=== PATIENT | female | born 1935 | race Caucasian/White ===

== ENCOUNTER 2018-01-20 14:28 | Inpatient (IN) ==
[2018-01-20] MEDS ORDERED: FUROSEMIDE 100 MG/10 ML VIAL IV STA (15:03)
[2018-01-20 15:50] LABS: Basophils % 0.5 % (0.0-0.8); Eosinophils # 0.1 10*3/uL (0.0-0.87); Eosinophils % 0.6 % (0.00-10.9); Hematocrit 45.1 VOL% (35.7-47.0); Hemoglobin 14.5 GM/DL (12.0-16.0); Immature Granulocytes % 0.2 %; Immature Granulocytes Absolute 0.02 #; Lymphocytes # 1.9 10*3/uL (1.4-4.0); Lymphocytes % 24.2 % (21.3-54.2); Mean Corpuscular HGB Conc 32.2 GM/DL (32-36); Mean Corpuscular Hemoglobin 30 PG (27-34); Mean Corpuscular Volume 91.9 FL (87-102); Mean Platelet Volume 11.6 FL (9.6-12.0); Monocytes # 1.1 10*3/uL (0.11-0.8); Monocytes % 13.8 % (1.7-12.7); Neutrophils # 4.9 10*3/uL (1.4-7.4); Neutrophils % 60.7 % (38.7-73.9); Platelet Count 188 T/CUMM (130-400); Red Blood Count 4.91 MC/CUMM (3.8-5.5); Red Cell Distribution Width 13.3 % (9.3-17.3)
[2018-01-20 16:11] LABS: INR 1.2; PT Patient Result 12.4 SECS; Partial Thromboplastin Time 27.1 SECS (0-40)
[2018-01-20 16:12] LABS: Albumin 3.2 G/DL (3.4-5.0); Bilirubin,Total 0.8 MG/DL (0.2-1.0); Calcium 8.6 MG/DL (8.5-10.1); Osmolality,Calculated 288.8 MOS/KG (273-304); Potassium 4.2 MMOL/L (3.5-5.1); Total Protein 5.7 G/DL (6.4-8.3)
[2018-01-20 16:23] LABS: Amorphous Crystals,Urine Occasional /HPF (Few); Apearance,Urine Slightly Hazy (Clear); Bilirubin,Urine Negative (Negative); Blood, Urine Small mg/dL (Negative); Glucose,Urine (UA) Negative (Negative); Hyaline Casts,Urine 2 /LPF (0-3); Ketones,Urine Negative (Negative); Mucus,Urine Occasional /LPF (Occasional); Nitrite,Urine Positive (Negative); Protein,Urine 30 MG/DL; RBC,Urine 12 /HPF (0-4); Squamous Epithelial Cell,Urine Occasional /HPF (0-10); Urine Color Amber (Yellow); Urine Specific Gravity 1.017 (1.001-1.035); WBC,Urine 45 /HPF (0-6)
[2018-01-20] MEDS ORDERED: ACETAMINOPHEN 325 MG TABLET PO PRN (17:26)
[2018-01-20] MEDS ORDERED: ONDANSETRON 4 MG/2 ML VIAL IV PRN (17:26)
[2018-01-20] MEDS ORDERED: NITROGLYCERIN SL 0.4 MG TABLET SL PRN (17:57)
[2018-01-20] MEDS ORDERED: POTASSIUM CHLORIDE 20 MEQ TABLET PO ONE (17:59)
[2018-01-20] MEDS: ENOXAPARIN 40 MG/0.4 ML SYRINGE SUBCUT SCH (21:27)
[2018-01-20] MEDS: CALCIUM (CARBONATE)/VITAMIN D 500 MG-200 UNIT TABLET PO SCH (21:28)
[2018-01-20] MEDS: PREGABALIN 100 MG CAPSULE PO SCH (21:28)
[2018-01-20] MEDS: MEMANTINE 10 MG TABLET PO SCH (21:28)
[2018-01-20] MEDS: DULoxetine 30 MG CAPSULE PO SCH (21:28)
[2018-01-20] MEDS: cefTRIAXone 1,000 MG in SYRINGE 1 EACH IV SCH (21:44)
[2018-01-21] MEDS ORDERED: FUROSEMIDE 20 MG/2 ML VIAL IV ONE ×2 (01:00→06:00)
[2018-01-21 05:16] LABS: Basophils % 0.4 % (0.0-0.8); Eosinophils # 0.1 10*3/uL (0.0-0.87); Eosinophils % 1.3 % (0.00-10.9); Hematocrit 42.8 VOL% (35.7-47.0); Hemoglobin 13.9 GM/DL (12.0-16.0); Immature Granulocytes % 0.9 %; Immature Granulocytes Absolute 0.07 #; Lymphocytes # 2.1 10*3/uL (1.4-4.0); Lymphocytes % 27.2 % (21.3-54.2); Mean Corpuscular HGB Conc 32.5 GM/DL (32-36); Mean Corpuscular Hemoglobin 30 PG (27-34); Mean Corpuscular Volume 91.3 FL (87-102); Mean Platelet Volume 12.2 FL (9.6-12.0); Monocytes # 1.2 10*3/uL (0.11-0.8); Monocytes % 15.7 % (1.7-12.7); Neutrophils # 4.3 10*3/uL (1.4-7.4); Neutrophils % 54.5 % (38.7-73.9); Platelet Count 162 T/CUMM (130-400); Red Blood Count 4.69 MC/CUMM (3.8-5.5); Red Cell Distribution Width 13.2 % (9.3-17.3); White Blood Count 7.8 T/CUMM (4-12)
[2018-01-21 05:55] LABS: Calcium 8.4 MG/DL (8.5-10.1); Osmolality,Calculated 291.6 MOS/KG (273-304); Potassium 3.5 MMOL/L (3.5-5.1); Risk Ratio 3.29; Thyroid Stimulating Hormone 3.13 uIU/ml (0.358-3.74)
[2018-01-21 05:58] LABS: Eosinophils 3 % (0-10); Lymphocytes 25 % (20-55); Segmented Neutrophils 59 % (50-85); Total Cells Counted 100
[2018-01-21 05:59] LABS: Hypochromasia 1+; Ovalocytes Slight; Platelet Estimate Adequate
[2018-01-21] MEDS ORDERED: POTASSIUM CHLORIDE 20 MEQ TABLET PO ONE (07:45)
[2018-01-21] MEDS ORDERED: MAGNESIUM SULF RIDER 4 GM in PREMIX 1 EACH IV PRN (07:46)
[2018-01-21] MEDS ORDERED: METOPROLOL TARTRATE 5 MG/5 ML VIAL IV ONE (07:48)
[2018-01-21] MEDS ORDERED: NON-FORMULARY MEDICATION (Cyanocobalamin (Vitamin B-12) [Vitamin B12] 2,500 MCG) PO SCH (09:00)
[2018-01-21] MEDS: LUBIPROSTONE 24 MCG CAPSULE PO SCH (10:30)
[2018-01-21] MEDS: PREGABALIN 100 MG CAPSULE PO SCH ×2 (10:30→21:27)
[2018-01-21] MEDS: MULTIVITAMIN (CENTRUM) TABLET PO SCH (10:30)
[2018-01-21] MEDS: CALCIUM (CARBONATE)/VITAMIN D 500 MG-200 UNIT TABLET PO SCH ×2 (10:31→21:26)
[2018-01-21] MEDS: METOPROLOL TARTRATE 25 MG TABLET PO SCH ×2 (10:31→21:27)
[2018-01-21] MEDS: MEMANTINE 10 MG TABLET PO SCH ×2 (10:31→21:27)
[2018-01-21] MEDS: ASPIRIN EC 81 MG TABLET PO SCH (10:31)
[2018-01-21] MEDS: MAGNESIUM SULF RIDER 2 GM in PREMIX 1 EACH IV PRN (10:32)
[2018-01-21] MEDS: FUROSEMIDE 20 MG/2 ML VIAL IV SCH ×2 (10:33→17:22)
[2018-01-21] MEDS ORDERED: FUROSEMIDE 20 MG/2 ML VIAL IV SCH (15:00)
[2018-01-21] MEDS: DULoxetine 30 MG CAPSULE PO SCH (21:26)
[2018-01-21] MEDS: ENOXAPARIN 40 MG/0.4 ML SYRINGE SUBCUT SCH (21:32)
[2018-01-21] MEDS: cefTRIAXone 1,000 MG in SYRINGE 1 EACH IV SCH (21:35)
[2018-01-22 05:41] LABS: Basophils % 0.5 % (0.0-0.8); Eosinophils # 0.1 10*3/uL (0.0-0.87); Eosinophils % 1.7 % (0.00-10.9); Hematocrit 44.3 VOL% (35.7-47.0); Hemoglobin 14.5 GM/DL (12.0-16.0); Immature Granulocytes % 0.2 %; Immature Granulocytes Absolute 0.02 #; Lymphocytes # 2.8 10*3/uL (1.4-4.0); Lymphocytes % 32.9 % (21.3-54.2); Mean Corpuscular HGB Conc 32.7 GM/DL (32-36); Mean Corpuscular Hemoglobin 30 PG (27-34); Mean Corpuscular Volume 90.2 FL (87-102); Mean Platelet Volume 11.9 FL (9.6-12.0); Monocytes # 1.4 10*3/uL (0.11-0.8); Monocytes % 16.1 % (1.7-12.7); Neutrophils # 4.1 10*3/uL (1.4-7.4); Neutrophils % 48.6 % (38.7-73.9); Platelet Count 192 T/CUMM (130-400); Red Blood Count 4.91 MC/CUMM (3.8-5.5); Red Cell Distribution Width 13.2 % (9.3-17.3); White Blood Count 8.5 T/CUMM (4-12)
[2018-01-22 05:54] LABS: Calcium 8.5 MG/DL (8.5-10.1); Osmolality,Calculated 284.1 MOS/KG (273-304); Potassium 3.9 MMOL/L (3.5-5.1)
[2018-01-22 06:08] LABS: Band Neutrophils 1 % (0-10); Eosinophils 5 % (0-10); Hypochromasia Slight; Lymphocytes 29 % (20-55); Microcytosis Slight; Ovalocytes Slight; Platelet Estimate Adequate; Segmented Neutrophils 58 % (50-85); Total Cells Counted 100
[2018-01-22] MEDS: CALCIUM (CARBONATE)/VITAMIN D 500 MG-200 UNIT TABLET PO SCH ×2 (08:28→21:15)
[2018-01-22] MEDS: PREGABALIN 100 MG CAPSULE PO SCH ×2 (08:28→22:14)
[2018-01-22] MEDS: MEMANTINE 10 MG TABLET PO SCH ×2 (08:28→21:16)
[2018-01-22] MEDS: ASPIRIN EC 81 MG TABLET PO SCH (08:28)
[2018-01-22] MEDS: MULTIVITAMIN (CENTRUM) TABLET PO SCH (08:28)
[2018-01-22] MEDS: LUBIPROSTONE 24 MCG CAPSULE PO SCH (08:29)
[2018-01-22] MEDS: METOPROLOL TARTRATE 25 MG TABLET PO SCH ×2 (08:29→21:14)
[2018-01-22] MEDS: FUROSEMIDE 20 MG/2 ML VIAL IV SCH ×3 (08:46→16:43)
[2018-01-22] MEDS: MIRTAZAPINE 15 MG TABLET PO SCH (18:40)
[2018-01-22] MEDS: SACUBITRIL/VALSARTAN 49-51 MG TABLET PO SCH (20:58)
[2018-01-22] MEDS: DULoxetine 30 MG CAPSULE PO SCH (21:15)
[2018-01-22] MEDS: ENOXAPARIN 40 MG/0.4 ML SYRINGE SUBCUT SCH (21:16)
[2018-01-23 04:20] LABS: Basophils % 0.6 % (0.0-0.8); Eosinophils # 0.2 10*3/uL (0.0-0.87); Eosinophils % 2.6 % (0.00-10.9); Hematocrit 41.3 VOL% (35.7-47.0); Hemoglobin 12.9 GM/DL (12.0-16.0); Immature Granulocytes % 0.3 %; Immature Granulocytes Absolute 0.02 #; Lymphocytes # 2.2 10*3/uL (1.4-4.0); Lymphocytes % 33.4 % (21.3-54.2); Mean Corpuscular HGB Conc 31.2 GM/DL (32-36); Mean Corpuscular Hemoglobin 29 PG (27-34); Mean Platelet Volume 12.1 FL (9.6-12.0); Monocytes # 1.1 10*3/uL (0.11-0.8); Neutrophils # 3.1 10*3/uL (1.4-7.4); Neutrophils % 46.1 % (38.7-73.9); Platelet Count 172 T/CUMM (130-400); Red Blood Count 4.44 MC/CUMM (3.8-5.5); Red Cell Distribution Width 13.2 % (9.3-17.3); White Blood Count 6.7 T/CUMM (4-12)
[2018-01-23 04:47] LABS: Eosinophils 1 % (0-10); Lymphocytes 37 % (20-55); Platelet Estimate Normal; Segmented Neutrophils 56 % (50-85); Total Cells Counted 100
[2018-01-23 04:55] LABS: Calcium 7.9 MG/DL (8.5-10.1); Osmolality,Calculated 289.7 MOS/KG (273-304); Potassium 3.5 MMOL/L (3.5-5.1)
[2018-01-23] MEDS: FUROSEMIDE 20 MG/2 ML VIAL IV SCH ×2 (09:23→15:24)
[2018-01-23] MEDS: MAGNESIUM SULF RIDER 2 GM in PREMIX 1 EACH IV PRN (09:24)
[2018-01-23] MEDS: LUBIPROSTONE 24 MCG CAPSULE PO SCH (09:24)
[2018-01-23] MEDS: MULTIVITAMIN (CENTRUM) TABLET PO SCH (09:24)
[2018-01-23] MEDS: PREGABALIN 100 MG CAPSULE PO SCH ×2 (09:24→20:49)
[2018-01-23] MEDS: CALCIUM (CARBONATE)/VITAMIN D 500 MG-200 UNIT TABLET PO SCH ×2 (09:24→20:49)
[2018-01-23] MEDS: ASPIRIN EC 81 MG TABLET PO SCH (09:25)
[2018-01-23] MEDS: SACUBITRIL/VALSARTAN 49-51 MG TABLET PO SCH ×2 (09:25→20:41)
[2018-01-23] MEDS: METOPROLOL TARTRATE 25 MG TABLET PO SCH ×2 (09:25→20:50)
[2018-01-23] MEDS: MEMANTINE 10 MG TABLET PO SCH ×2 (09:26→20:49)
[2018-01-23] MEDS: POTASSIUM CHLORIDE 20 MEQ TABLET PO SCH (09:30)
[2018-01-23] MEDS: MIRTAZAPINE 15 MG TABLET PO SCH (17:49)
[2018-01-23] MEDS: ENOXAPARIN 40 MG/0.4 ML SYRINGE SUBCUT SCH (20:49)
[2018-01-23] MEDS: DULoxetine 30 MG CAPSULE PO SCH (20:49)
[2018-01-24 05:19] LABS: Basophils # 0.1 10*3/uL (0.0-0.2); Basophils % 0.6 % (0.0-0.8); Eosinophils # 0.3 10*3/uL (0.0-0.87); Eosinophils % 3.6 % (0.00-10.9); Hemoglobin 15.2 GM/DL (12.0-16.0); Immature Granulocytes % 0.1 %; Immature Granulocytes Absolute 0.01 #; Lymphocytes # 3.1 10*3/uL (1.4-4.0); Lymphocytes % 37.6 % (21.3-54.2); Mean Corpuscular HGB Conc 31.7 GM/DL (32-36); Mean Corpuscular Hemoglobin 29 PG (27-34); Mean Corpuscular Volume 91.3 FL (87-102); Mean Platelet Volume 12.2 FL (9.6-12.0); Monocytes # 1.2 10*3/uL (0.11-0.8); Neutrophils # 3.7 10*3/uL (1.4-7.4); Neutrophils % 44.1 % (38.7-73.9); Platelet Count 206 T/CUMM (130-400); Red Blood Count 5.26 MC/CUMM (3.8-5.5); Red Cell Distribution Width 13.2 % (9.3-17.3); White Blood Count 8.3 T/CUMM (4-12)
[2018-01-24 05:42] LABS: Calcium 8.7 MG/DL (8.5-10.1); Osmolality,Calculated 286.8 MOS/KG (273-304); Potassium 4.6 MMOL/L (3.5-5.1)
[2018-01-24] MEDS: METOPROLOL TARTRATE 25 MG TABLET PO SCH ×2 (09:32→21:51)
[2018-01-24] MEDS: POTASSIUM CHLORIDE 20 MEQ TABLET PO SCH (09:33)
[2018-01-24] MEDS: MEMANTINE 10 MG TABLET PO SCH ×2 (09:33→21:51)
[2018-01-24] MEDS: MULTIVITAMIN (CENTRUM) TABLET PO SCH (09:33)
[2018-01-24] MEDS: FUROSEMIDE 20 MG/2 ML VIAL IV SCH ×2 (09:33→17:18)
[2018-01-24] MEDS: LUBIPROSTONE 24 MCG CAPSULE PO SCH (09:33)
[2018-01-24] MEDS: ASPIRIN EC 81 MG TABLET PO SCH (09:33)
[2018-01-24] MEDS: PREGABALIN 100 MG CAPSULE PO SCH ×2 (09:33→21:51)
[2018-01-24] MEDS: CALCIUM (CARBONATE)/VITAMIN D 500 MG-200 UNIT TABLET PO SCH ×2 (09:33→21:52)
[2018-01-24] MEDS: SACUBITRIL/VALSARTAN 49-51 MG TABLET PO SCH ×2 (09:38→22:08)
[2018-01-24] MEDS: MIRTAZAPINE 15 MG TABLET PO SCH (17:44)
[2018-01-24] MEDS: ENOXAPARIN 40 MG/0.4 ML SYRINGE SUBCUT SCH (21:50)
[2018-01-24] MEDS: DULoxetine 30 MG CAPSULE PO SCH (21:51)
[2018-01-25 03:09] LABS: Hematocrit 44.7 VOL% (35.7-47.0); Hemoglobin 14.3 GM/DL (12.0-16.0); Red Blood Count 4.84 MC/CUMM (3.8-5.5); White Blood Count 9.9 T/CUMM (4-12)
[2018-01-25 03:10] LABS: Basophils % 0.3 % (0.0-0.8); Eosinophils # 0.3 10*3/uL (0.0-0.87); Eosinophils % 2.8 % (0.00-10.9); Immature Granulocytes % 0.2 %; Immature Granulocytes Absolute 0.02 #; Lymphocytes # 2.3 10*3/uL (1.4-4.0); Lymphocytes % 23.6 % (21.3-54.2); Mean Corpuscular Hemoglobin 30 PG (27-34); Mean Corpuscular Volume 92.4 FL (87-102); Mean Platelet Volume 11.5 FL (9.6-12.0); Monocytes # 1.1 10*3/uL (0.11-0.8); Monocytes % 10.7 % (1.7-12.7); Neutrophils # 6.2 10*3/uL (1.4-7.4); Neutrophils % 62.4 % (38.7-73.9); Platelet Count 173 T/CUMM (130-400); Red Cell Distribution Width 13.2 % (9.3-17.3)
[2018-01-25 03:24] LABS: Calcium 8.3 MG/DL (8.5-10.1); Calcium 8.5 MG/DL (8.5-10.1); Osmolality,Calculated 288.7 MOS/KG (273-304); Potassium 3.8 MMOL/L (3.5-5.1)
[2018-01-25 03:26] LABS: Albumin 2.8 G/DL (3.4-5.0); Bilirubin,Total 0.4 MG/DL (0.2-1.0); Calcium 8.6 MG/DL (8.5-10.1); Osmolality,Calculated 288.7 MOS/KG (273-304); Potassium 3.8 MMOL/L (3.5-5.1); Total Protein 5.5 G/DL (6.4-8.3)
[2018-01-25] MEDS: FUROSEMIDE 20 MG/2 ML VIAL IV SCH (09:28)
[2018-01-25] MEDS: SACUBITRIL/VALSARTAN 49-51 MG TABLET PO SCH (09:57)
[2018-01-25] MEDS: LUBIPROSTONE 24 MCG CAPSULE PO SCH (10:05)
[2018-01-25] MEDS: MEMANTINE 10 MG TABLET PO SCH (10:05)
[2018-01-25] MEDS: MULTIVITAMIN (CENTRUM) TABLET PO SCH (10:05)
[2018-01-25] MEDS: ASPIRIN EC 81 MG TABLET PO SCH (10:05)
[2018-01-25] MEDS: CALCIUM (CARBONATE)/VITAMIN D 500 MG-200 UNIT TABLET PO SCH (10:05)
[2018-01-25] MEDS: PREGABALIN 100 MG CAPSULE PO SCH (10:05)
[2018-01-25] MEDS: POTASSIUM CHLORIDE 20 MEQ TABLET PO SCH (10:09)
[2018-01-25] MEDS ORDERED: SPIRONOLACTONE 25 MG TABLET PO SCH (11:00)
[2018-01-25] MEDS: METOPROLOL TARTRATE 25 MG TABLET PO SCH (11:02)
[2018-01-25 11:44] VITALS: BP 115/70
[2018-01-25] MEDS ORDERED: LIDOCAINE 1%/EPI INJ 20 ML VIAL ONE (11:59)
[2018-01-25] MEDS ORDERED: HEPARIN 5,000 UNIT/1 ML VIAL ONE (11:59)
[2018-01-25] MEDS ORDERED: CARVEDILOL 3.125 MG TABLET PO SCH (17:00)
[2018-01-26] MEDS ORDERED: POTASSIUM CHLORIDE 20 MEQ TABLET PO SCH (09:00)
[2018-01-26] MEDS ORDERED: FUROSEMIDE 40 MG TABLET PO SCH (09:00)
== END 2018-01-25 12:20 | disposition swing bed (61) | DRG 291 ==
LOC: N.EDINP 14:28 → N.ED 14:28 → N.EDINP 18:45 → N.2E 19:11
PROVIDERS: ADMIT Internal Medicine; ATTEND Internal Medicine